=== PATIENT | female | born 1970 | race Caucasian/White ===

== ENCOUNTER 2020-02-12 11:11 | Emergency (ER) | payer BC ==
--- NOTE | 2020-02-12 11:42 | TELE ---
HPI Do you have fever,cough or shortness of breath?: No - General Reason For Visit: YEAST INFECTION Time Seen by Provider: 02/12/20 11:37 History Source: Patient Exam Limitations: Clinical Condition - History of Present Illness Timing/Duration: 24 hours Severity: reports: mild 02/12/20 11:38 Patient currently on Augmentin antibiotics for tooth extraction call interval to urgent care due to yeast infection from antibiotics. Patient requesting Diflucan for yeast infection. Denies fever, chills, nausea, vomiting, vaginal discharge. Denies any other symptoms Past History - Medical History Home Medications: Ambulatory Orders Fluconazole [Diflucan] 150 mg PO ONCE 1 Days #2 tablet 02/12/20 Review of Systems - Review of Systems Able to Perform ROS?: Yes Limited Dominican proficient: No Constitutional: No: Chills, Fever, Malaise HEENTM: Yes: Symptoms Reported, Dental Problems. No: See HPI, Eye Pain, Blurred Vision, Tearing, Recent change in vision, Double Vision, Cataracts, Ear Pain, Ocular Prothesis, Ear Discharge, Nose Pain, Nose Congestion, Tinnitus, Nose Bleeding, Hearing Loss, Throat Pain, Throat Swelling, Mouth Pain, Difficulty Swallowing, Mouth Swelling, Other Respiratory: No: Symptoms reported, See HPI, Cough, Orthopnea, Shortness of Breath, SOB with Exertion, SOB at Rest, Stridor, Wheezing, Productive cough, Hemoptysis, Other Cardiac (ROS): No: Symptoms Reported, See HPI, Chest Pain, Edema, Irregular Heart Rate, Lightheadedness, Palpitations, Syncope, Chest Tightness, Other ABD/GI: No: Symptoms Reported, Nausea, Vomiting : Yes: Symptoms Reported, See HPI, Discharge (white vaginal discharge) Musculoskeletal: No: Symptoms Reported Integumentary: No: Symptoms Reported Neurological: No: Symptoms reported All Other Systems: Reviewed and Negative *Physical Exam - Physical Exam General Appearance: Yes: Nourished, Appropriately Dressed. No: Apparent Distress HEENT: positive: Normal ENT Inspection Neck: positive: Supple Respiratory/Chest: negative: Respiratory Distress, Accessory Muscle Use Musculoskeletal: positive: Normal Inspection Extremity: positive: Normal Inspection, Normal Range of Motion Integumentary: positive: Normal Color Neurologic: positive: Fully Oriented, Alert, Normal Mood/Affect, Normal Response Discharge Diagnosis at time of Disposition: Vaginal candidiasis - Prescriptions eRx: Fluconazole [Diflucan] 150 mg PO ONCE 1 Days #2 tablet - Referrals - Patient Instructions Discharge Instructions: DI for Vaginal Yeast Infection Additional Discharge Instructions: Take medications as prescribed. Follow-up with your [facility]
== END 2020-02-12 11:42 | disposition home or self-care (01) ==
LOC: JVIRT 11:11
DX: B37.3 Candidiasis of vulva and vagina (principal)
CPT/HCPCS: Q3014-GT

== ENCOUNTER → 2022-10-20 | Day surgery (SDC) | payer BC | END | disposition home or self-care (01) | LOC: JRADIR 09:10 | PROC: 0G9H3ZX Drainage of Right Thyroid Gland Lobe, Percutaneous Approach, Diagnostic (ICD-10-PCS; principal; 2022-10-20) | DX: E04.2 Nontoxic multinodular goiter (principal) | CPT/HCPCS: 10005; 76942; 88173; 88305-TC ==

== ENCOUNTER → 2022-11-07 | Day surgery (SDC) | payer BC | END | disposition home or self-care (01) | LOC: JRADIR 08:59 | PROC: 0GBH3ZX Excision of Right Thyroid Gland Lobe, Percutaneous Approach, Diagnostic (ICD-10-PCS; principal; 2022-11-07) | DX: E04.1 Nontoxic single thyroid nodule (principal) | CPT/HCPCS: 10005; 76942; 88173; 88305-TC ==

== ENCOUNTER → 2022-12-05 | Day surgery (SDC) | payer BC | END | disposition home or self-care (01) | LOC: JRADIR 10:23 | PROC: 0G9G3ZX Drainage of Left Thyroid Gland Lobe, Percutaneous Approach, Diagnostic (ICD-10-PCS; principal; 2022-12-05) | DX: E04.1 Nontoxic single thyroid nodule (principal) | CPT/HCPCS: 10005; 76942; 88173; 88305-TC ==

== ENCOUNTER 2023-11-19 06:57 | Emergency (ER) | payer BC ==
[2023-11-19] MEDS: LACTATED RINGERS SOLUTION 1000 ML INFUS.BAG IV ONE ×2 (07:23→10:28)
[2023-11-19 07:32] VITALS: BMI 25.7
[2023-11-19 08:32] LABS: HEMATOCRIT 42.6 % (32.4-45.2); HEMOGLOBIN 13.3 G/dL (10.7-15.3); MCH 28.1 pg (25.7-33.7); MCHC 31.2 g/dl (32.0-36.0); MEAN CELL VOLUME 90.1 fl (80-96); PLATELET COUNT 193.2 10^3/uL (134-434); RBC 4.73 10^6/uL (3.60-5.2); RDW 13.8 % (11.6-15.6); WHITE BLOOD COUNT 10.1 10^3/uL (4.0-10.8)
[2023-11-19] MEDS ORDERED: ONDANSETRON 4 MG/2 ML VIAL ONE (08:46)
[2023-11-19] MEDS: ONDANSETRON 4 MG/2 ML VIAL IVPUSH ONE (08:49)
[2023-11-19 09:41] LABS: ALBUMIN 3.8 g/dl (3.4-5.0); BILIRUBIN,TOTAL 1.1 mg/dl (0.2-1); CREATININE 0.6 mg/dl (0.6-1.3); MAGNESIUM 1.7 mg/dL (1.8-2.4); POTASSIUM 3.7 mmol/L (3.5-5.1)
[2023-11-19 09:46] VITALS: RESP 18
[2023-11-19] MEDS ORDERED: ACETAMINOPHEN INJECTION 100 ML IVPB ONE (09:47)
[2023-11-19] MEDS: ACETAMINOPHEN 1000 MG/100 ML BAG IVPB ONE (09:52)
[2023-11-19 10:00] LABS: EPITHELIAL CELLS 0-5 /hpf
[2023-11-19] MEDS ORDERED: cefTRIAXone SODIUM 1 GM VIAL ONE (10:30)
[2023-11-19 10:38] LABS: PLATELET ESTIMATE ADEQUATE
[2023-11-19] MEDS: CEFTRIAXONE 1,000 MG in DEXTROSE 5%-WATER - 50 ML IVPB ONE (10:41)
[2023-11-19 11:47] VITALS: BP 96/61; PULSE 99; TEMP 99.5
== END 2023-11-19 12:39 | disposition home or self-care (01) ==
LOC: FER 06:57
PROC: 3E03329 Introduction of Other Anti-infective into Peripheral Vein, Percutaneous Approach (ICD-10-PCS; principal; 2023-11-19)
PROC: 3E033NZ Introduction of Analgesics, Hypnotics, Sedatives into Peripheral Vein, Percutaneous Approach (ICD-10-PCS; 2023-11-19)
PROC: 3E033GC Introduction of Other Therapeutic Substance into Peripheral Vein, Percutaneous Approach (ICD-10-PCS; 2023-11-19)
DX: R42 Dizziness and giddiness (principal); R53.81 Other malaise; R68.83 Chills (without fever); R35.0 Frequency of micturition; N30.00 Acute cystitis without hematuria; Z20.822 Contact with and (suspected) exposure to COVID-19
CPT/HCPCS: 0241U-QW; 36415; 70450-TC; 80053; 81003; 81015; 82962; 83036; 83735; 84443; 85027; 87086; 93005; 99285-25; J0131